=== PATIENT | male | born 1985 | race Caucasian/White ===

== ENCOUNTER 2020-08-20 17:48 | Emergency (ER) | payer SELFPAY ==
[2020-08-20 17:53] VITALS: BP 135/94; PULSE 83; RESP 18; TEMP 37.2; O2SAT 98; BMI 31.0
--- NOTE | 2020-08-20 18:02 | PC.NURSE ---
PT C/O RIGHT EAR PAIN AND PRESSURE. EVALED BY ARMANDO BOCANEGRA.
--- NOTE | 2020-08-20 18:06 | ED.EAR ---
HPI - Ear Problem General Chief complaint: Ear Problems Stated complaint: ear infection Time Seen by Provider: 08/20/20 18:04 Source: patient Mode of arrival: ambulatory Limitations: no limitations History of Present Illness HPI Narrative: 34 yo male here with right ear pain x 24 hrs. No fevers, chills, headache, rhinorrhea, nasal congestion, sore throat. Related Data Previous Rx's Medication Instructions Recorded amoxicillin 500 mg PO BID #21 tab 08/20/20 Allergies Allergy/AdvReac Type Severity Reaction Status Date / Time No Known Allergies Allergy Unverified 01/21/20 16:56 Review of Systems Review of Systems: Yes all other systems are reviewed and are negative Constitutional: Constitutional: Reports no additional constitutional complaints, Denies body ache(s), Denies chills, Denies fever(s), Denies headache(s) and Denies weakness Eyes: Eyes: Reports no additional eye complaints and Denies change in vision ENT: Reports system reviewed and no additional complaints, except as documented, Denies dizziness, Reports otalgia, Denies headache(s), Denies nasal congestion, Denies nasal discharge and Denies neck pain Cardiovascular: Cardiovascular: Reports no additional cardiovascular complaints, Denies chest pain, Denies leg edema and Denies dyspnea Respiratory: Respiratory: Reports no additional respiratory complaints, Denies cough and Denies dyspnea Gastrointestinal: Gastrointestinal: Reports no additional gastrointestinal complaints, Denies abdominal pain, Denies diarrhea, Denies nausea and Denies vomiting Genitourinary: Genitourinary: Denies urinary incontinence Musculoskeletal: Musculoskeletal: Reports no additional musculoskeletal complaints, Denies back pain, Denies arthralgias, Denies joint swelling, Denies neck pain, Denies numbness and Denies tingling Integumentary/Breasts: Skin/Breast: Reports system reviewed and no additional complaints, except as docu and Denies rash Neurologic: Reports system reviewed and no additional complaints, except as documented, Denies Abnormal speech present, Denies dizziness, Denies headache(s), Denies numbness, Denies tingling and Denies weakness PMFSH Past Medical History Attestation statement: The following information was validated with the patient. Source: old records reviewed and nursing notes reviewed Medical History No known health problems Social History Social History Advance Directives: No Advance Directives Information Provided: No Physical Exam Vital Signs: Vital Signs: Last Vital Signs Temp 98.9 F 08/20/20 17:53 Pulse 83 08/20/20 17:53 Resp 18 08/20/20 17:53 BP 135/94 H 08/20/20 17:53 Pulse Ox 98 08/20/20 17:53 Body Mass Index 31.0 Const: General: cooperative, healthy appearing, comfortable and no acute distress Orientation/consciousness: patient oriented x3 Limitations: no limitations HENMT: Head: Yes normal to inspection Ears: hearing grossly normal bilaterally, TM normal on the left, mastoids normal, no periauricular adenopathy and TM abnormal (Right TM bulging with erythema) General nose exam: Normal external nose present Face and sinus: Yes normal facial exam Mouth: Normal oral and palatal mucosa present Throat: Yes posterior oropharynx normal Eyes: General: appearance normal, both eyes and all related structures Pupils: Equal, round and reactive pupils present Neck: Neck: Yes normal visual inspection Chest: Chest palpation & inspection: normal inspection of the chest Resp: Effort & Inspection: normal respiratory effort Auscultation: clear to auscultation bilaterally Cardio: Rate: regular rate Rhythm: regular rhythm Peripheral pulses: Peripheral pulses 2+ throughout GI: Inspection: Yes normal to inspection Palpation (GI): Soft to palpation and nontender Auscultation: normal bowel sounds Back/Spine/Pelvis: Thoracic/Lumbar Spine: thoracic and lumbar spine normal to inspection Skin: General skin exam: no rashes or lesions noted Neuro: General: patient oriented x3, no focal motor deficits and normal sensation to monofilament Cranial nerves: Yes Equal, round and reactive pupils present Cognition (Neuro): normal cognition Speech: No Abnormal speech present Gait exam (Neuro): Normal gait present Motor exam (neuro): 5/5 motor strength present throughout Extrem: General: Yes normal to inspection Course Course Course Narrative: Exam is consistent with right otitis media. No evidence of mastoiditis. Reviewed worrisome signs and symptoms and when to return to the emergency department. Comfortable discharge home. Discharge Plan Discharge Clinical Impression: Otitis media Qualifiers: Chronicity: acute Laterality: right Recurrence: non-recurrent Spontaneous tympanic membrane rupture: without spontaneous rupture Patient Disposition: Home, Self-Care Instructions: Ear Infection (ED) Prescriptions: New amoxicillin 500 mg tablet 500 mg PO BID Qty: 21 RF: 0 Referrals: Physician,None [Primary Care Provider] - 2 days
== END 2020-08-20 18:26 | disposition home or self-care (01) ==
PROVIDERS: Emergency Provider Internal Medicine
DX: H66.91 Otitis media, unspecified, right ear (principal); H92.01 Otalgia, right ear
CPT/HCPCS: 99283

== ENCOUNTER 2021-01-02 17:31 | Emergency (ER) | payer OTHER, SELFPAY ==
[2021-01-02 17:37] VITALS: BP 164/120; PULSE 77; RESP 16; TEMP 36.9; O2SAT 96; BMI 31.7
[2021-01-02 22:09] LABS: COVID-19 Test Negative (Negative); IDNOW Serial# 9DD0AD1C
--- NOTE | 2021-01-02 22:30 | ED_ITS ---
HPI - URI/Sore Throat General Chief Complaint: Upper Respiratory Symptoms Stated Complaint: Covid symptoms Time Seen by Provider: 01/02/21 20:34 Source: patient Mode of arrival: ambulatory History of Present Illness HPI Narrative: 35-year-old male, every day smoker, presents with stuffy nose, cough, sore throat and states that he had a prior co-worker that is ?currently on the ventilator for COVID?. Patient states that he is not been vaccinated for COVID-19. And otherwise denies any body aches or fevers/chills. Related Data Previous Rx's Medication Instructions Recorded amoxicillin 500 mg tablet 500 mg PO BID #21 tab 08/20/20 Allergies Allergy/AdvReac Type Severity Reaction Status Date / Time No Known Allergies Allergy Unverified 01/21/20 16:56 Review of Systems Review of Systems: Pertinent positives and negatives as stated in HPI 10 point review of systems is otherwise negative. PMFSH Past Medical History Source: nursing notes reviewed Medical History No known health problems Social History Social History Advance Directives: No Physical Exam Vital Signs: Vital Signs: Last Vital Signs Temp 98.5 F 01/02/21 17:37 Pulse 77 01/02/21 17:37 Resp 16 01/02/21 17:37 BP 164/120 H 01/02/21 17:37 Pulse Ox 96 01/02/21 17:37 Body Mass Index 31.7 VITAL SIGNS: Reviewed. GENERAL: Well developed, well nourished, in no acute distress. HEAD: Normocephalic/atraumatic EYES: PERRLA, EOMI EARS: Ext canals without abnormality, TMs non-bulging and non-erythematous NOSE: Nares patent bilateral but a little congestion is noted OROPHARYNX: no oral lesions noted, posterior pharynx clear and non-erythematous without noted tonsillar enlargement/erythema/exudates NECK: Supple, no adenopathy LUNGS: Normal breath sounds. No adventitious sounds or accessory muscle use. SpO2<96> CARDIOVASCULAR: Regular rate and rhythm without noted murmurs ABDOMEN: Soft, non-tender, non-distended with bowel sounds. NEUROLOGIC: Alert and oriented x 4. Course Course Course Narrative: 35-year-old male with history and clinical presentation after review of investigations likely secondary to mild allergies and underlying smoking habit. Patient was informed of results and after some counseling appears to be willing to pursue COVID-19 vaccination. MDM - URI/Sore Throat Lab Data Labs: Lab Results 01/02/21 Range/Units 21:49 COVID-19 ([facility]I) Negative (Negative) COVID-19 Clin Com See Note Discharge Plan Discharge Clinical Impression: Lab test negative for COVID-19 virus Patient Disposition: Home, Self-Care Instructions: Allergic Rhinitis (ED) Additional Instructions: Follow-up with your primary care provider in the next 2-3 days for re- evaluation. Recommend getting your COVID-19 vaccine. Return to the ER for acute worsening of your symptoms. Prescriptions: No Action amoxicillin 500 mg tablet 500 mg PO BID Qty: 21 RF: 0 Referrals: Physician,None [Primary Care Provider] - 2 days
[2021-01-02 22:41] VITALS: BP 127/77; PULSE 66; RESP 16; O2SAT 99
== END 2021-01-02 22:43 | disposition home or self-care (01) ==
PROVIDERS: Student in an Organized Health Care Education/Training Program; Emergency Provider Student in an Organized Health Care Education/Training Program
DX: R05 Cough (principal); R79.89 Other specified abnormal findings of blood chemistry; Z20.822 Contact with and (suspected) exposure to COVID-19
CPT/HCPCS: 36415; 87635; 99283; 99284